=== PATIENT | female | born 1970 | race Caucasian/White ===

== ENCOUNTER → 2017-06-09 | Outpatient (CLI) | payer OTHER | END | disposition home or self-care (01) | LOC: CFH 16:10 | DX: Z12.31 Encounter for screening mammogram for malignant neoplasm of breast (principal); N64.89 Other specified disorders of breast | CPT/HCPCS: G0202 ==

== ENCOUNTER → 2017-06-30 | Outpatient (CLI) | payer OTHER | END | disposition home or self-care (01) | LOC: CFH 15:02 | DX: N63 Unspecified lump in breast (principal) | CPT/HCPCS: 76641; G0206 ==

== ENCOUNTER → 2017-07-14 | Outpatient (CLI) | payer OTHER ==
[~2017-07-14] MED LIST: LIDOCAINE 1%-EPI 1:100K, 20ML ONE; LIDOCAINE 2%, 20ML ONE
== END | disposition home or self-care (01) ==
LOC: CFH 13:33
DX: N63 Unspecified lump in breast (principal)
CPT/HCPCS: 19083; G0206; J3490; 88305

== ENCOUNTER → 2017-08-18 | Outpatient (CLI) | payer OTHER ==
[~2017-08-18] MED LIST changes: +GABA PO; -LIDOCAINE 1%-EPI 1:100K, 20ML ONE; -LIDOCAINE 2%, 20ML ONE; +[UNRECOGNIZED DRUG - CODE] PO; +[UNRECOGNIZED DRUG - OTHER] PO; +[UNRECOGNIZED DRUG - OTHER] PO; +l-theanine PO
[2017-08-18 16:39] LABS: HEMATOCRIT 43.2 % (34.6-47.8); HEMOGLOBIN 14.3 g/dL (11.7-16.4); WHITE BLOOD COUNT 12.4 x10^3/uL (3.4-10)
== END | disposition home or self-care (01) ==
LOC: STAR 15:30
DX: N94.6 Dysmenorrhea, unspecified (principal); N85.2 Hypertrophy of uterus
CPT/HCPCS: 36415; 81003; 85025

== ENCOUNTER 2017-09-01 08:02 | Day surgery (SDC) | payer OTHER ==
[~2017-09-01] VITALS: Ht 165.1 cm; Wt 83.9 kg
[2017-09-01] MEDS ORDERED: LACTATED RINGERS 1,000 ML IV SCH (08:32)
[2017-09-01 08:41] LABS: HCG UR LOT HCG7030192
[2017-09-01] MEDS ORDERED: MIDAZOLAM 1 MG/ML, 2ML ONE (08:59)
[2017-09-01] MEDS ORDERED: SUCCINYLCHOLINE 20 MG/ML, 10ML ONE (09:00)
[2017-09-01] MEDS ORDERED: CEFAZOLIN 1,000 MG ONE (09:00)
[2017-09-01] MEDS ORDERED: NEOSTIGMINE 1 MG/ML, 10ML ONE (09:00)
[2017-09-01] MEDS ORDERED: PROPOFOL 10 MG/ML, 20ML ONE (09:00)
[2017-09-01] MEDS ORDERED: DEXAMETHASONE 4 MG/ML, 1ML ONE (09:00)
[2017-09-01] MEDS ORDERED: ONDANSETRON 2MG/ML, 2ML ONE (09:00)
[2017-09-01] MEDS ORDERED: ROCURONIUM 10 MG/ML ONE (09:00)
[2017-09-01] MEDS ORDERED: GLYCOPYRROLATE 0.2MG/1ML, 5ML ONE (09:00)
[2017-09-01] MEDS ORDERED: FENTANYL PF 250 MCG/5ML ONE (09:00)
[2017-09-01] MEDS ORDERED: LIDOCAINE 4%, 4 ML SYR/CANN TP ONE (09:05)
[2017-09-01 09:08] LABS: HCG UR OBC PASS
[2017-09-01 09:17] VITALS: BP 125/86
[2017-09-01] MEDS ORDERED: BUPIVACAINE/PF 0.25% ONE (10:17)
[2017-09-01] MEDS ORDERED: FLUORESCEIN SODIUM 500 MG/5 ML ONE (10:17)
[2017-09-01] MEDS ORDERED: PROMETHAZINE 25 MG/ML, 1ML IV PRN (10:30)
[2017-09-01] MEDS ORDERED: OXYcodone 5 MG/5 ML ORAL.SOL UDC PO PRN (10:30)
[2017-09-01] MEDS ORDERED: HYDROmorphone 1 MG/ML, 1ML IV PRN (10:30)
[2017-09-01] MEDS ORDERED: ACETAMINOPHEN 325 MG TABLET PO PRN (10:30)
[2017-09-01] MEDS ORDERED: MEPERIDINE/PF 25MG/0.5ML IVPush PRN (10:30)
[2017-09-01] MEDS ORDERED: HYDROcodone/APAP 7.5-325MG/15ML UDC PO PRN (10:30)
[2017-09-01] MEDS ORDERED: ONDANSETRON 2MG/ML, 2ML IVPush PRN (10:30)
[2017-09-01] MEDS ORDERED: MIDAZOLAM 1 MG/ML, 2ML IV PRN (10:30)
[2017-09-01] MEDS ORDERED: FENTANYL PF 100 MCG/2ML IV PRN (10:30)
[2017-09-01] MEDS ORDERED: HYDROmorphone 2 MG/ML, 1ML ONE (11:09)
[2017-09-01] MEDS ORDERED: ACETAMINOPHEN 650 MG/20.3 ML UDC ONE (12:53)
[2017-09-01] MEDS ORDERED: OXYcodone 5 MG/5 ML ORAL.SOL UDC ONE (12:53)
== END 2017-09-01 16:00 ==
LOC: OUT 08:02
DX: N92.0 Excessive and frequent menstruation with regular cycle (principal); N93.9 Abnormal uterine and vaginal bleeding, unspecified; N94.6 Dysmenorrhea, unspecified; Z85.3 Personal history of malignant neoplasm of breast; E89.0 Postprocedural hypothyroidism; Z88.1 Allergy status to other antibiotic agents; Z88.8 Allergy status to other drugs, medicaments and biological substances
CPT/HCPCS: 58571; 81025; 88307; C1760; J0330; J0690; J1100; J1170; J2250; J2405; J2704; J2710; J3010; J3490; J7120

== ENCOUNTER → 2018-11-24 | Outpatient (CLI) | payer OTHER | END | disposition home or self-care (01) | LOC: CFH 07:31 | PROVIDERS: ATTEND Nurse Practitioner Family | DX: Z12.31 Encounter for screening mammogram for malignant neoplasm of breast (principal) | CPT/HCPCS: 77063; 77067 ==